=== PATIENT | female | born 1960 | race Asian ===

== ENCOUNTER 2017-09-25 11:10 | Emergency (ER) | payer SELFPAY ==
--- NOTE | 2017-09-25 12:50 | XRay Report ---
CHEST TWO VIEWS: 09/25/17 11:10:00 CLINICAL: Upper back pain. COMPARISON: None FINDINGS: Normal heart and pulmonary vasculature. The lungs are normally expanded and clear.Osteopenia and limited imaging of the thoracic spine. IMPRESSION: No acute cardiopulmonary process. A thoracic spine fracture cannot be excluded on this exam.Recommend thoracic spine x-rays suspect a compression fracture.
[2017-09-25 12:59] LABS: Basophils % (Auto) 0.8 % (0.0-1.8); Eosinophils % (Auto) 0.7 % (0.0-4.3); Hematocrit 43.7 % (30.3-42.9); Hemoglobin 14.4 gm/dl (10.1-14.3); Mean Corpuscular HGB Conc 33 % (30-34); Mean Corpuscular Volume 78 fl (79-97); Platelet Count 185 K/mm3 (140-440); Red Blood Count 5.64 M/mm3 (3.65-5.03); Red Cell Distribution Width 14.1 % (13.2-15.2); White Blood Count 5.8 K/mm3 (4.5-11.0)
[2017-09-25] MEDS ORDERED: NORCO 5/325 PO ONE (13:04)
[2017-09-25 13:05] LABS: Alanine Aminotransferase 9 units/L (7-56); Albumin 4.2 g/dL (3.9-5); Albumin/Globulin Ratio 1.8 %; Alkaline Phosphatase 117 units/L (35-129); Anion Gap 19 mmol/L; BUN/Creatinine Ratio 14; Blood Urea Nitrogen 15 mg/dL (7-17); Calcium 9.5 mg/dL (8.4-10.2); Carbon Dioxide 25 mmol/L (22-30); Chloride 91.9 mmol/L (98-107); Potassium 5.3 mmol/L (3.6-5.0); Sodium 131 mmol/L (137-145); Total Protein 6.6 g/dL (6.3-8.2)
[2017-09-25 13:09] LABS: Mean Corpuscular Hemoglobin 26 pg (28-32)
[2017-09-25 13:12] LABS: Glucose 522 mg/dL (65-100)
[2017-09-25] MEDS ORDERED: NACL 0.9% 1000 ML 1,000 ML IV ONE (13:13)
[2017-09-25 13:31] LABS: Bilirubin,Urine NEG (Negative); Blood,Urine NEG (Negative); Ketones,Urine NEG (Negative); Leukocyte Esterase,Urine NEG (Negative); Mucus,Urine FEW /HPF; Nitrite,Urine NEG (Negative); Protein,Urine <15 mg/dL mg/dL (Negative); Urobilinogen,Urine < 2.0 mg/dL (<2.0); WBC,Urine < 1.0 /HPF (0.0-6.0)
--- NOTE | 2017-09-25 13:35 | Cat Scan Report ---
CT THORACIC SPINE WITHOUT CONTRAST: 09/25/17 12:55:00 CLINICAL: Back pain. TECHNIQUE: Volumetric acquisition and 1.25-mm and 2.5 mm axial scan reconstructions of the thoracic spine without contrast. Sagittal and coronal reformats were performed. COMPARISON: None. FINDINGS: Moderate diffuse osteopenia. Normal vertebral body height and alignment. The disc spaces are normal. However, degenerative disease with anterior osteophytes at T3-4 and T7-8.No suspicious bone lesions and no fracture. No neural foraminal stenosis. The soft tissues are normal. IMPRESSION: Degenerative change at T3-4 and T7-8 but no fracture. Minimal degenerative disc disease with no disc protrusion or bulge identified.
--- NOTE | 2017-09-25 13:53 | Emergency Department Report ---
ED Back Pain/Injury HPI - General Chief Complaint: Back Pain/Injury Stated Complaint: BACK PAIN Time Seen by Provider: 09/25/17 12:09 Source: patient, old records reviewed Mode of arrival: Ambulatory Limitations: No Limitations - History of Present Illness MD Complaint: back pain, other (NO FALL) -: Gradual (WEEKS) Similar Symptoms Previously: No Place: home Radiation: none Severity: mild Quality: aching Consistency: intermittent Improves With: none Worsens With: none Context: other (NO INJURY) Associated Symptoms: other (OFF MEDS FOR MONTHS BC LOST INSURANCE). denies: confusion, weakness, chest pain, numbness, difficulty walking, cough, difficulty urinating, diaphoresis, incontinence, fever/chills, constipation, headaches, abdominal pain, loss of appetite, malaise, nausea/vomiting, rash, seizure, shortness of breath, syncope Treatments Prior to Arrival: NSAIDS - Related Data Previous Rx's Medication Instructions Recorded Last Taken Type Lisinopril [Zestril] 10 mg PO DAILY #30 tablet 09/25/17 Unknown Rx Naproxen [Naprosyn] 500 mg PO BID PRN #20 tablet 09/25/17 Unknown Rx metFORMIN [Glucophage] 500 mg PO BID #60 tablet 09/25/17 Unknown Rx Allergies Allergy/AdvReac Type Severity Reaction Status Date / Time No Known Allergies Allergy Verified 09/25/17 11:19 ED Review of Systems ROS: Stated complaint: BACK PAIN Other details as noted in HPI Comment: All other systems reviewed and negative Respiratory: denies: cough, orthopnea, shortness of breath, SOB with exertion, SOB at rest Cardiovascular: denies: chest pain, palpitations, dyspnea on exertion, orthopnea Endocrine: denies: excessive sweating, flushing, intolerance to cold, intolerance to heat Gastrointestinal: denies: abdominal pain, nausea, vomiting Genitourinary: denies: urgency, dysuria Musculoskeletal: back pain (THORACIC AREA) Skin: denies: rash, lesions Neurological: denies: headache, weakness Psychiatric: denies: anxiety, depression Hematological/Lymphatic: denies: easy bleeding ED Past Medical Hx - Past Medical History Hx Hypertension: Yes Hx Diabetes: Yes - Family History Family history: no significant - Social History Smoking Status: Current Every Day Smoker Substance Use Type: Alcohol - Medications Home Medications: Home Medications Medication Instructions Recorded Confirmed Last Taken Type Lisinopril [Zestril] 10 mg PO DAILY #30 tablet 09/25/17 Unknown Rx Naproxen [Naprosyn] 500 mg PO BID PRN #20 tablet 09/25/17 Unknown Rx metFORMIN [Glucophage] 500 mg PO BID #60 tablet 09/25/17 Unknown Rx ED Physical Exam - General Limitations: No Limitations ED Course Vital Signs 09/25/17 09/25/17 09/25/17 11:19 13:24 15:12 Temperature 98.8 F Pulse Rate 104 H 92 H 82 Respiratory 18 18 18 Rate Blood Pressure 174/110 Blood Pressure 167/101 136/85 [Left] O2 Sat by Pulse 98 98 Oximetry - Reevaluation(s) Reevaluation #1: 09/25/17 TO ER W THORACIC BACK PAIN NO FALL NO CP NO SOB AMBULATORY MEDICATED FOR PAIN XRAY NOTED CT ORDERED LABS NOTED BS INC OFF MEDS FOR MONTHS BC LOST INS BP INC OFF MEDS EDUCATED ON [facility] CLONIDINE PO FLUIDS AND INSULIN RECORDS REVIEWED CT NOTED PT UPDATED ON POC NS INFUSING Reevaluation #2: 09/25/[address] JACOBSON WILL STABILIZE AND DC HOME W REFERRALS AND RX Reevaluation #3: 09/25/17 15:38 BP TRENDING DOWN BS TRENDING DOWN PAIN IMPROVED NS GIVEN DC HOME W DC POC VSS NO CP NO SOB VERBALIZES UNDERSTANDING OF DC POC ED Medical Decision Making - Lab Data Result diagrams: 09/25/17 12:32 09/25/17 12:32 - EKG Data -: EKG Interpreted by Me EKG shows normal: sinus rhythm Rate: normal - EKG Data Interpretation: no acute changes - Radiology Data Radiology results: report reviewed, image reviewed - Medical Decision Making SEE NOTE - Differential Diagnosis RO FX Critical care attestation.: If time is entered above; I have spent that time in minutes in the direct care of this critically ill patient, excluding procedure time. ED Disposition Clinical Impression: Hypertension, Diabetes mellitus, Hyperglycemia, Back pain Disposition: DC-01 TO HOME OR SELFCARE Is pt being admited?: No Does the pt Need Aspirin: No Condition: Stable Instructions: Diabetes Mellitus Type 2 in Adults (ED), Hypertension (ED) Additional Instructions: diabetic diet low salt diet take meds- [facility] FOLLOW UP PCP SEE BELOW Prescriptions: Lisinopril [Zestril] 10 mg PO DAILY #30 tablet metFORMIN [Glucophage] 500 mg PO BID #60 tablet Naproxen [Naprosyn] 500 mg PO BID PRN #20 tablet PRN Reason: Pain Referrals: PRIMARY CARE, [Primary Care Provider] - 3-5 Days OZZY MARK MD [Staff Physician] - 3-5 Days [facility] [Outside] - 3-[address] [facility] [Outside] - 3-5 Days [facility] [Outside] - 3-5 Days [facility] [Outside] - 3-5 Days Time of Disposition: 15:29
[2017-09-25] MEDS ORDERED: CATAPRES PO ONE (13:58)
[2017-09-25 15:13] VITALS: BP 136/85
== END 2017-09-25 15:53 | disposition home or self-care (01) ==
LOC: ED 11:10
DX: M54.6 Pain in thoracic spine (principal); I10 Essential (primary) hypertension; E11.65 Type 2 diabetes mellitus with hyperglycemia; F17.200 Nicotine dependence, unspecified, uncomplicated
CPT/HCPCS: 36415; 71020; 72128; 80053; 81001; 82010; 82962; 84484; 85025; 93005; 93010; 96361; 96374; 99285; J7030; J1815